=== PATIENT | male | born 1975 | race Two or more races ===

== ENCOUNTER 2022-03-23 12:22 | Emergency (ER) | payer OTHER ==
[2022-03-23 13:07] VITALS: BP 151/76
[2022-03-23] MEDS ORDERED: AMOX-277 PO (15:01)
[2022-03-23] MEDS ORDERED: IBUP800T27 PO (15:01)
== END 2022-03-23 15:19 | disposition home or self-care (01) ==
LOC: ER 12:22
DX: L03.315 Cellulitis of perineum (principal)